=== PATIENT | female | born 1995 | race African-American/Black ===

== ENCOUNTER 2016-11-11 16:19 | Emergency (ER) | payer MEDICAID ==
[2016-11-11 16:23] VITALS: BP 113/64; PULSE 116; RESP 20; TEMP 99.1; O2SAT 99
--- NOTE | 2016-11-11 18:52 | PD ---
HPI Chief Complaint: Complaint Time Seen by Provider: 17:29 Travel History International Travel<30 days: No Contact w/Intl Traveler<30days: No Traveled to known affect area: No History of Present Illness HPI 21-year-old female last menstruation started today complains of dysuria for 3-4 days. She's had hot and cold spells however denies fever nausea vomiting diarrhea. There's been no abnormal vaginal discharge. No history STD. She reports using barrier contraception and no hx STD. PFSH Past Medical History Medical History: Denies Significant Hx Diminished Hearing: No Tetanus Vaccination: < 5 Years Influenza Vaccination: Yes ?: Unknown LMP: 11/11/16 Past Surgical History Surgical History: No Previous Surgery Social History Alcohol Use: Yes (OCASSIONALLY) Tobacco Use: No Substance Use: No (PT DENIES) Allergies-Medications (Allergen,Severity, Reaction): Coded Allergies: No Known Allergies (Verified Allergy, Unknown, 11/11/16) Reported Meds & Prescriptions Reported Meds & Active Scripts Active Bactrim DS (Sulfamethoxazole-Trimethoprim) 800-160 Mg Tab 1 Tab PO BID Review of Systems Except as stated in HPI: all other systems reviewed are Neg Physical Exam Narrative GENERAL: 21-year-old female pleasant well-nourished well-developed SKIN: Warm and dry. HEAD: Atraumatic. Normocephalic. EYES: Pupils equal and round. No scleral icterus. No injection or drainage. ENT: No nasal bleeding or discharge. Mucous membranes pink and moist. NECK: Trachea midline. No JVD. CARDIOVASCULAR: Regular rate and rhythm. RESPIRATORY: No accessory muscle use. Clear to auscultation. Breath sounds equal bilaterally. GASTROINTESTINAL: Soft. Minimal tenderness to deep palpation suprapubic abdomen. No flank tenderness to percussion. MUSCULOSKELETAL: Extremities without clubbing, cyanosis, or edema. No obvious deformities. NEUROLOGICAL: Awake and alert. No obvious cranial nerve deficits. Motor grossly within normal limits. Five out of 5 muscle strength in the arms and legs. Normal speech. PSYCHIATRIC: Appropriate mood and affect; insight and judgment normal. Data Data Last Documented VS Vital Signs Date Time Temp Pulse Resp B/P Pulse Ox O2 Delivery O2 Flow Rate FiO2 11/11/16 18:32 78 16 11/11/16 16:23 99.1 113/64 99 Room Air Vital signs reviewed Orders Urinalysis - C+S If Indicated (11/11/16 18:39) Ed Urine Pregnancytest Poc (11/11/16 18:39) Urine Culture (11/11/16 18:35) Sulfamet-Trimeth Ds 800-160 Mg (Bactrim (11/11/16 20:45) Labs Laboratory Tests Test 11/11/16 18:35 Urine Color YELLOW Urine Turbidity HAZY Urine pH 8.0 Urine Specific [place] 1.028 Urine Protein 30 mg/dL Urine Glucose (UA) NEG mg/dL Urine Ketones NEG mg/dL Urine Occult Blood MOD Urine Nitrite NEG Urine Bilirubin NEG Urine Urobilinogen 8.0 MG/DL Urine Leukocyte Esterase LARGE Urine RBC /hpf Urine WBC 105 /hpf Urine Squamous Epithelial 1 /hpf Cells Urine Amorphous Sediment RARE Urine Mucus MOD /lpf Microscopic Urinalysis Comment CULTURE INDICATED MDM Medical Decision Making Medical Screen Exam Complete: Yes Emergency Medical Condition: Yes Differential Diagnosis IUP, UTI, ectopic , ov torsion, appendicitis, TOA, cervicitis, BV, Trichomoniasis, ov cyst, hernia, mittelschmerz, pain from menstruation Narrative Course UA: UTI present POC : negative Bactrim DS script. Return precautions discussed. Diagnosis Primary Impression: UTI (urinary tract infection) Qualified Code: N39.0 - Urinary tract infection with hematuria, site unspecified Referrals: Primary Care Physician 2 days Additional Instructions: IF YOU EXPERIENCE FEVER, WORSENING PAIN, CONTINUOUS VOMITING OR IF YOU BELIEVE A RETURN TO THE ER IS NECESSARY PLEASE DO NOTE HESITATE TO RETURN FOR RE- EVALUATION. Med/Other Pt SpecificInfo: Prescription(s) given Scripts Sulfamethoxazole-Trimethoprim (Bactrim DS)800-160 Mg Tab1 Tab PO BID #6 TAB Ref 0 Prov:Timmy Guo MD 11/11/16 Disposition: 01 DISCHARGE HOME Condition: Stable Timmy Guo MD Nov 11, 2016 18:52
[2016-11-11 20:16] LABS: BLOOD, URINE MOD (NEG); COMMENT (UR) CULTURE INDICATED; CULTURE IF INDICATED CULTURE INDICATED; GLUCOSE,URINE NEG (NEG); KETONE, URINE NEG (NEG); MUCUS URINE MOD /lpf (OCC); NITRITE,URINE NEG (NEG); SQUAMOUS EPITHELIAL CELL URINE 1 /hpf (0-5); URINE COLOR YELLOW (YELLW/STRAW)
[2016-11-11] MEDS ORDERED: BACT800T5 PO (20:31)
[2016-11-11] MEDS ORDERED: SULFAMETHOXAZOLE-TRIMETHOPRIM DS 800-160 MG TAB PO ONE (20:45)
== END 2016-11-11 21:49 | disposition home or self-care (01) ==
LOC: NEPD 16:19
DX: N39.0 Urinary tract infection, site not specified (principal)
CPT/HCPCS: 81001; 84703; 87086; 99283

== ENCOUNTER 2017-01-31 15:11 | Emergency (ER) | payer MEDICAID ==
[~2017-01-31] VITALS: Ht 160 cm; Wt 75.0 kg
[~2017-01-31 15:11] MED LIST: BACT800T5 PO
[2017-01-31 15:13] VITALS: BP 106/56; PULSE 77; RESP 18; TEMP 99.4; O2SAT 100
--- NOTE | 2017-01-31 17:56 | PD ---
HPI Chief Complaint: Refurbish Technician Problem/Complaint Time Seen by Provider: 17:38 Travel History International Travel<30 days: No Contact w/Intl Traveler<30days: No Traveled to known affect area: No History of Present Illness HPI 21-year-old female presents to emergency department for a irritation and rash of the posterior aspect of the vaginal area that worsened last night. States that she has had this rash for 2-3 days after using a pad. Last night she used metronidazole cream but this did not help her symptoms. States she has insertion pain. Patient denies fever, chills, chest pain, shortness breath, abdominal pain, pelvic pain. She denies vaginal discharge, bleeding, or urinary symptoms. She is on the Depo shot- her last shot was January 12. She has no other medical history and does not take any other medications. States that she has currently been on her period for about 7-8 days which is normal with her Depo shot. She has no other concerns today. PFSH Past Medical History Diminished Hearing: No ?: Not LMP: 01/21/17 Social History Alcohol Use: Yes (OCASSIONALLY) Tobacco Use: No Substance Use: No (PT DENIES) Allergies-Medications (Allergen,Severity, Reaction): Coded Allergies: No Known Allergies (Verified , 01/31/17) Reported Meds & Prescriptions Reported Meds & Active Scripts Active Nystop Topical (Nystatin Topical) 100,000 Unit/Gm Powd 1 Applic TOPICAL ONCE 7 Days Review of Systems Except as stated in HPI: all other systems reviewed are Neg Physical Exam Narrative GENERAL: well developed, well nourished SKIN: Focused skin assessment warm/dry. HEAD: Atraumatic. Normocephalic. EYES: Pupils equal and round. No scleral icterus. No injection or drainage. ENT: No nasal bleeding or discharge. Mucous membranes pink and moist. NECK: Trachea midline. No JVD. CARDIOVASCULAR: Regular rate and rhythm. No murmur appreciated. RESPIRATORY: No accessory muscle use. Clear to auscultation. Breath sounds equal bilaterally. GASTROINTESTINAL: Abdomen soft, non-tender, nondistended. MUSCULOSKELETAL: No obvious deformities. No clubbing. No cyanosis. No edema. GENITOURINARY: Normal external genitalia without lesions. Posterior vaginal labia 3-9 oclock appears macerated, non friable, semi-circular plaque. Perineum appears macerated vs fissure. Pt identified area of concern on exam. Vaginal vault with cream (metronidazole, per patient) and blood. Cervical os was closed without drainage. NEUROLOGICAL: Awake and alert. No obvious cranial nerve deficits. Motor grossly within normal limits. Normal speech. PSYCHIATRIC: Appropriate mood and affect; insight and judgment normal. Data Data Last Documented VS Vital Signs Date Time Temp Pulse Resp B/P (MAP) Pulse Ox O2 Delivery O2 Flow Rate FiO2 01/31/17 18:41 01/31/17 17:15 16 01/31/17 15:13 99.4 77 100 Room Air Orders Orders Ed Discharge Order (01/31/17 18:00) MDM Medical Decision Making Medical Screen Exam Complete: Yes Emergency Medical Condition: Yes Differential Diagnosis Genital herpes versus contact dermatitis versus chemical dermatitis versus fissure Narrative Course 21-year-old female presents to emergency department for a irritation and rash of the posterior aspect of the vaginal area that worsened last night. States that she has had this rash for 2-3 days after using a pad. Last night she used metronidazole cream but this did not help her symptoms. States she has insertion pain. Patient denies fever, chills, chest pain, shortness breath, abdominal pain, pelvic pain. She denies vaginal discharge, bleeding, or urinary symptoms. She is on the Depo shot- her last shot was January 12. She has no other medical history and does not take any other medications. States that she has currently been on her period for about 7-8 days which is normal with her Depo shot. She has no other concerns today. Physical exam consistent with contact dermatitis with possible developing intertrigo. No legions or papules on external genitalia. Samples and cultures not taken- area of concern identified in external genitalia. Treat with nystatin powder and hygiene. Pt to return to PCP within 2 days. Avoid placing any foreign object into vaginal cavity for at least 1 week or until follow up with Primary Care Physician. Return to ED for worsening or persistent symptoms. Diagnosis Primary Impression: Contact dermatitis Qualified Codes: L24.9 - Irritant contact dermatitis, unspecified cause Referrals: [facility] Primary Care Physician Additional Instructions: Return to your Primary care physician within 2 days. Take medications as prescribed. If you develop increased pain or exudate, return to the ED. Do not put anything into the vaginal cavity for at least 1 week. Scripts Nystatin Topical (Nystop Topical) 100,000 Unit/Gm Powd 1 APPLIC TOPICAL ONCE for 7 Days, TUBE 0 Refills Prov: Luis Bang MD 01/31/17 Disposition: 01 DISCHARGE HOME Condition: Stable Elsy Flores Jan 31, 2017 17:56
[2017-01-31] MEDS ORDERED: NYST10007 TOPICAL (17:57)
== END 2017-01-31 18:41 | disposition home or self-care (01) ==
LOC: NEPD 15:11
DX: L25.9 Unspecified contact dermatitis, unspecified cause (principal)
CPT/HCPCS: 99284